=== PATIENT | female | born 2000 | race Two or more races ===

== ENCOUNTER 2024-04-08 07:53 | Outpatient (RCR) | payer OTHER, SELFPAY ==
--- NOTE | 2024-01-29 08:51 | XR_ITS ---
Examination: Biophysical profile, ultrasound Date and time of exam: January 29, 2024 0929 hours INDICATIONS: Diagnosis intrauterine growth retardation Technique: Multiple transabdominal sonographic images of the pelvis abdomen obtained. Attention is directed to the breathing movement, gross body movement, amniotic fluid volume and tone. Findings: Amniotic fluid index 11.1 cm Total biophysical profile is 8 of 8. breathing movement is 2. Gross body movement is 2. tone is 2. Qualitative amniotic fluid volume is 2 Impression: Biophysical profile is 8 of 8.
[2024-01-29 09:55] VITALS: BP 110/74; PULSE 83; RESP 16; TEMP 36.9
--- NOTE | 2024-02-01 08:04 | XR_ITS ---
Examination: Biophysical profile, ultrasound Date and time of exam: February 01, 2024 0826 hours INDICATIONS: Diagnosis intrauterine growth retardation Technique: Multiple transabdominal sonographic images of the pelvis abdomen obtained. Attention is directed to the breathing movement, gross body movement, amniotic fluid volume and tone. Findings: Amniotic fluid 13.5 cm Total biophysical profile is 8 of 8. breathing movement is 2. Gross body movement is 2. tone is 2. Qualitative amniotic fluid volume is 2 Impression: Biophysical profile is 8 of 8.
[2024-02-01 08:45] VITALS: BP 110/75; PULSE 93; RESP 16; TEMP 36.8
--- NOTE | 2024-02-08 08:05 | XR_ITS ---
Examination: Biophysical profile, ultrasound Date and time of exam: February 08, 2024 at 0808 hours INDICATIONS: Intrauterine growth retardation diagnoses Technique: Multiple transabdominal sonographic images of the pelvis abdomen obtained. Attention is directed to the breathing movement, gross body movement, amniotic fluid volume and tone. Findings: Amniotic fluid index 11.5 cm Total biophysical profile is 8 of 8. breathing movement is 2. Gross body movement is 2. tone is 2. Qualitative amniotic fluid volume is 2 Impression: Biophysical profile is 8 of 8.
[2024-02-08 08:44] VITALS: BP 112/68; PULSE 90; RESP 18; TEMP 37
--- NOTE | 2024-02-12 08:18 | XR_ITS ---
Examination: Biophysical profile, ultrasound Date and time of exam: February 12, 2024 0819 hours INDICATIONS: Biweekly NST, diagnosis intrauterine growth retardation Technique: Multiple transabdominal sonographic images of the pelvis abdomen obtained. Attention is directed to the breathing movement, gross body movement, amniotic fluid volume and tone. Findings: Amniotic fluid index 12.1 cm Total biophysical profile is 8 of 8. breathing movement is 2. Gross body movement is 2. tone is 2. Qualitative amniotic fluid volume is 2 Impression: Biophysical profile is 8 of 8.
[2024-02-12 08:51] VITALS: BP 98/61; PULSE 105; RESP 16; TEMP 36.7
--- NOTE | 2024-02-15 08:02 | XR_ITS ---
Examination: Biophysical profile, ultrasound Date and time of exam: February 15, 2024 0805 hours INDICATIONS: Maternal care for other known or suspected poor growth Technique: Multiple transabdominal sonographic images of the pelvis abdomen obtained. Attention is directed to the breathing movement, gross body movement, amniotic fluid volume and tone. Findings: Amniotic fluid index 11.5 cm Total biophysical profile is 8 of 8. breathing movement is 2. Gross body movement is 2. tone is 2. Qualitative amniotic fluid volume is 2 Impression: Biophysical profile is 8 of 8.
[2024-02-15 08:28] VITALS: BP 112/69; PULSE 99; RESP 16; TEMP 36.7
--- NOTE | 2024-02-19 08:16 | XR_ITS ---
Examination: Biophysical profile, ultrasound Date and time of exam: February 19, 2024 0820 hours INDICATIONS: Poor growth Technique: Multiple transabdominal sonographic images of the pelvis abdomen obtained. Attention is directed to the breathing movement, gross body movement, amniotic fluid volume and tone. Findings: Amniotic fluid index 13.7 cm Total biophysical profile is 8 of 8. breathing movement is 2. Gross body movement is 2. tone is 2. Qualitative amniotic fluid volume is 2 Impression: Biophysical profile is 8 of 8.
[2024-02-19 08:43] VITALS: BP 117/72; PULSE 96; RESP 16; TEMP 36.7
--- NOTE | 2024-02-26 08:13 | XR_ITS ---
Examination: Biophysical profile, ultrasound Date and time of exam: February 26, 2024 0817 hours INDICATIONS: Intrauterine growth retardation diagnoses Technique: Multiple transabdominal sonographic images of the pelvis abdomen obtained. Attention is directed to the breathing movement, gross body movement, amniotic fluid volume and tone. Findings: Amniotic fluid index 11.6 cm Total biophysical profile is 8 of 8. breathing movement is 2. Gross body movement is 2. tone is 2. Qualitative amniotic fluid volume is 2 Impression: Biophysical profile is 8 of 8.
[2024-02-26 08:38] VITALS: BP 117/74; PULSE 92; RESP 16; TEMP 36.9
--- NOTE | 2024-02-29 08:03 | XR_ITS ---
Examination: Biophysical profile, ultrasound Date and time of exam: February 29, 2024 0806 hours INDICATIONS: Diagnosis intrauterine growth retardation Technique: Multiple transabdominal sonographic images of the pelvis abdomen obtained. Attention is directed to the breathing movement, gross body movement, amniotic fluid volume and tone. Findings: Amniotic fluid index 13.2 cm Total biophysical profile is 8 of 8. breathing movement is 2. Gross body movement is 2. tone is 2. Qualitative amniotic fluid volume is 2 Impression: Biophysical profile is 8 of 8.
[2024-02-29 08:41] VITALS: BP 115/69; PULSE 106; RESP 16; TEMP 36.9
--- NOTE | 2024-03-04 08:06 | XR_ITS ---
Examination: Biophysical profile, ultrasound Date and time of exam: March 04, 2024 0809 hours INDICATIONS: Diagnosis intrauterine growth retardation Technique: Multiple transabdominal sonographic images of the pelvis abdomen obtained. Attention is directed to the breathing movement, gross body movement, amniotic fluid volume and tone. Findings: Amniotic fluid index 11.8 cm Total biophysical profile is 8 of 8. breathing movement is 2. Gross body movement is 2. tone is 2. Qualitative amniotic fluid volume is 2 Impression: Biophysical profile is 8 of 8.
[2024-03-04 08:42] VITALS: BP 103/60; PULSE 93; RESP 16; TEMP 36.7
--- NOTE | 2024-03-07 08:10 | XR_ITS ---
Examination: Biophysical profile, ultrasound Date and time of exam: March 07, 2024 0821 hours INDICATIONS: Diagnosis intrauterine growth retardation Technique: Multiple transabdominal sonographic images of the pelvis abdomen obtained. Attention is directed to the breathing movement, gross body movement, amniotic fluid volume and tone. Findings: Amniotic fluid index 11.4 cm Total biophysical profile is 8 of 8. breathing movement is 2. Gross body movement is 2. tone is 2. Qualitative amniotic fluid volume is 2 Impression: Biophysical profile is 8 of 8.
[2024-03-07 08:46] VITALS: BP 117/66; PULSE 110; RESP 16; TEMP 36.7
--- NOTE | 2024-03-11 08:12 | XR_ITS ---
Examination: Biophysical profile, ultrasound Date and time of exam: March 11, 2024 0813 hours INDICATIONS: Diagnosis intrauterine growth retardation Technique: Multiple transabdominal sonographic images of the pelvis abdomen obtained. Attention is directed to the breathing movement, gross body movement, amniotic fluid volume and tone. Findings: Amniotic fluid index 12.5 cm Total biophysical profile is 8 of 8. breathing movement is 2. Gross body movement is 2. tone is 2. Qualitative amniotic fluid volume is 2 Impression: Biophysical profile is 8 of 8.
[2024-03-11 08:32] VITALS: BP 110/60; PULSE 115; RESP 16; TEMP 36.7
--- NOTE | 2024-03-14 08:11 | XR_ITS ---
Examination: Biophysical profile, ultrasound Date and time of exam: March 14, 2024 0812 hours INDICATIONS: Intrauterine growth retardation Technique: Multiple transabdominal sonographic images of the pelvis abdomen obtained. Attention is directed to the breathing movement, gross body movement, amniotic fluid volume and tone. Findings: Amniotic fluid index 7.6 cm Total biophysical profile is 8 of 8. breathing movement is 2. Gross body movement is 2. tone is 2. Qualitative amniotic fluid volume is 2 Impression: Biophysical profile is 8 of 8.
[2024-03-14 08:38] VITALS: BP 102/63; PULSE 105; RESP 16
--- NOTE | 2024-03-18 08:14 | XR_ITS ---
Examination: Biophysical profile, ultrasound Date and time of exam: March 18, 2024 0829 hours INDICATIONS: Diagnosis intrauterine growth retardation Technique: Multiple transabdominal sonographic images of the pelvis abdomen obtained. Attention is directed to the breathing movement, gross body movement, amniotic fluid volume and tone. Findings: Amniotic fluid index 10.9 cm Total biophysical profile is 8 of 8. breathing movement is 2. Gross body movement is 2. tone is 2. Qualitative amniotic fluid volume is 2 Impression: Biophysical profile is 8 of 8.
[2024-03-18 09:14] VITALS: BP 106/61; PULSE 102; RESP 18
--- NOTE | 2024-03-21 08:12 | XR_ITS ---
Examination: Biophysical profile, ultrasound Date and time of exam: March 21, 2024 0819 hours INDICATIONS: Diagnosis intrauterine growth retardation Technique: Multiple transabdominal sonographic images of the pelvis abdomen obtained. Attention is directed to the breathing movement, gross body movement, amniotic fluid volume and tone. Findings: Amniotic fluid index 10.2 cm Total biophysical profile is 8 of 8. breathing movement is 2. Gross body movement is 2. tone is 2. Qualitative amniotic fluid volume is 2 Impression: Biophysical profile is 8 of 8.
[2024-03-21 08:40] VITALS: BP 117/61; PULSE 98; RESP 16; TEMP 37
--- NOTE | 2024-03-25 08:20 | XR_ITS ---
Examination: Biophysical profile, ultrasound Date and time of exam: March 25, 2024 0822 hours INDICATIONS: Diagnosis intrauterine growth retarded dictation Technique: Multiple transabdominal sonographic images of the pelvis abdomen obtained. Attention is directed to the breathing movement, gross body movement, amniotic fluid volume and tone. Findings: Amniotic fluid index 11.6 cm Total biophysical profile is 8 of 8. breathing movement is 2. Gross body movement is 2. tone is 2. Qualitative amniotic fluid volume is 2 Impression: Biophysical profile is 8 of 8.
[2024-03-25 08:51] VITALS: BP 105/69; PULSE 96; RESP 14; TEMP 36.8
--- NOTE | 2024-03-28 08:03 | XR_ITS ---
Examination: Biophysical profile, ultrasound Date and time of exam: March 28, 2024 0812 hours INDICATIONS: Diagnosis maternal care for other known or suspected poor growth, patient states pelvic pressure and vomiting intermittently beginning 2 days ago Technique: Multiple transabdominal sonographic images of the pelvis abdomen obtained. Attention is directed to the breathing movement, gross body movement, amniotic fluid volume and tone. Findings: Amniotic fluid index 14.8 cm Total biophysical profile is 8 of 8. breathing movement is 2. Gross body movement is 2. tone is 2. Qualitative amniotic fluid volume is 2 Impression: Biophysical profile is 8 of 8.
[2024-03-28 08:48] VITALS: BP 108/67; PULSE 88; RESP 15; TEMP 36.7
--- NOTE | 2024-04-01 08:06 | XR_ITS ---
Examination: Biophysical profile, ultrasound Date and time of exam: April 01, 2024 0833 hours INDICATIONS: Diagnosis intrauterine growth retardation Technique: Multiple transabdominal sonographic images of the pelvis abdomen obtained. Attention is directed to the breathing movement, gross body movement, amniotic fluid volume and tone. Findings: Amniotic fluid index 6.3 cm Total biophysical profile is 8 of 8. breathing movement is 2. Gross body movement is 2. tone is 2. Qualitative amniotic fluid volume is 2 Impression: Biophysical profile is 8 of 8.
[2024-04-01 09:53] VITALS: BP 113/58; PULSE 74; RESP 15; TEMP 36.7
--- NOTE | 2024-04-04 08:07 | XR_ITS ---
Examination: Biophysical profile, ultrasound Date and time of exam: April 04, 2024 0822 hours INDICATIONS: Diagnosis intrauterine growth retardation, history low amniotic fluid index, 6.3 cm on biophysical April 01, 2024 Technique: Multiple transabdominal sonographic images of the pelvis abdomen obtained. Attention is directed to the breathing movement, gross body movement, amniotic fluid volume and tone. Findings: Amniotic fluid index 11.2 cm Total biophysical profile is 8 of 8. breathing movement is 2. Gross body movement is 2. tone is 2. Qualitative amniotic fluid volume is 2 Impression: Biophysical profile is 8 of 8.
[2024-04-04 08:58] VITALS: BP 111/64; PULSE 96; RESP 16; TEMP 36.7
--- NOTE | 2024-04-08 08:18 | XR_ITS ---
Examination: Biophysical profile, ultrasound Date and time of exam: April 08, 2024 0819 hours INDICATIONS: Diagnosis intrauterine growth retardation, diagnosis low amniotic fluid index, 6.3 cm on biophysical April 01, 2024 Technique: Multiple transabdominal sonographic images of the pelvis abdomen obtained. Attention is directed to the breathing movement, gross body movement, amniotic fluid volume and tone. Findings: Amniotic fluid index 15.3 cm Total biophysical profile is 8 of 8. breathing movement is 2. Gross body movement is 2. tone is 2. Qualitative amniotic fluid volume is 2 Impression: Biophysical profile is 8 of 8.
[2024-04-08 08:50] VITALS: BP 98/56; PULSE 113; RESP 16; TEMP 36.9
== END 2024-04-08 23:59 | disposition home or self-care (01) ==
LOC: S4S1 07:53
PROVIDERS: Referring Provider Obstetrics & Gynecology; Visit Provider Obstetrics & Gynecology
DX: O36.5930 Maternal care for other known or suspected poor fetal growth, third trimester, not applicable or unspecified (principal); Z3A.38 38 weeks gestation of pregnancy
CPT/HCPCS: 59025; 76819

== ENCOUNTER 2024-04-09 19:20 | Inpatient (IN) | payer OTHER, SELFPAY ==
[2024-04-09] VITALS (13 sets, daily range): BP systolic 102–116; BP diastolic 46–69; PULSE 89–126; RESP 18–98; TEMP 36.5; O2SAT 96–97; BMI 34.3
[2024-04-09 20:56] LABS: Basophils % (Auto) 0 % (0-2.5); Eosinophils # (Auto) 0.2 Thou/mm3 (0.0-0.5); Eosinophils % (Auto) 2 % (0-10); Hematocrit 35.2 % (36.0-46.0); Immature Granulocytes % (Auto) 1 % (0-0); Immature Granulocytes Auto 0.11 Thou/mm3 (0.00-0.00); Lymphocytes # (Auto) 2.2 Thou/mm3 (1.0-4.8); Lymphocytes % (Auto) 18 % (10-50); Mean Corpuscular HGB Conc 34.1 g/dl (31.0-37.0); Mean Corpuscular Hemoglobin 28.8 pg (25.0-35.0); Mean Corpuscular Volume 85 fL (80-100); Monocytes % (Auto) 8 % (0-12); Neutrophils # (Auto) 8.6 Thou/mm3 (1.8-7.7); Neutrophils % (Auto) 71 % (37-80); Nucleated Red Blood Cell % 0 /100 WBC (0); Platelet Count 165 Thou/mm3 (140-440); RDW Standard Deviation 41.1 fL (36.4-46.3); Red Blood Count 4.16 Miln/mm3 (4.00-5.20); White Blood Count 12.1 Thou/mm3 (3.6-11.0)
[2024-04-09] MEDS: OXYTOCIN in NS 30 units 30 UNIT/500 ML BAG IV (22:25)
[2024-04-09] MEDS: [UNRECOGNIZED DRUG - OTHER] IV (22:25)
[2024-04-09 23:14] LABS: Syphilis Nonreactive (Nonreactive)
[2024-04-10] VITALS (107 sets, daily range): BP systolic 87–148; BP diastolic 51–80; PULSE 80–124; RESP 16–18; TEMP 36.3–36.9; O2SAT 93–100
--- NOTE | 2024-04-10 07:19 | ESHP_ITS ---
Documentation for date of: 04/10/24 OB Labor/Induct. HPI History of Present Illness Chief complaint: induction : 1 Para: 0 Term pregnancies: 0 pregnancies: 0 Living children: 0 History of Abortions: Spontaneous and Elective: 0 History of Vaginal deliveries: 0 History of sections: No History of : No Date of last menstrual period: 07/15/23 BLU: 04/20/24 Gestational Age (weeks): 38 Gestational Age (days): 4 Gestational age based on last menstrual period: 38 Indication for induction: other (FGR) History of present illness: 23-year-old 1 para 0 admit to labor and delivery for induction of labor. Patient is been followed at [facility] care. First visit 12 weeks. Last period July 15, 2023. Estimated due date April 2004/2024. Patient is O+, antibody screen negative, RPR nonreactive, rubella immune, hepatitis B negative, hep C negative, HIV negative, GC and Chlamydia were negative. She had normal 1 hour. And GBS negative. Denies social habits. Denies surgery. Denies chronic illness. Patient has been [facility] at [facility] because of growth restriction. Baby initially had been growing in 4th percentile but the last 2 visits baby is now growing in the 10th percentile consistently with good fundal height growth clinically. Her Dopplers have been normal and NST BPP is normal History of Present Dating criteria: LMP confirmed by 1st trimester US Adequate Care: Yes Ultrasounds: normal 1st trimester US and normal mid trimester US Obstetrical complications: growth restriction Medical complications: none Labs Labs: Negative: Hepatitis B, HIV, Chlamydia, Gonorrhea and Group Beta Strep Review of Systems Review of Systems Systems Reviewed: All systems reviewed, normal except as documented Past Medical History Surgical History SURGICAL: Negative Section Meds Home Medications and Allergies Home Medications ?Medication ?Instructions ?Recorded ?Confirmed ?Type No Known Home Medications 04/09/24 04/09/24 History Allergies Allergy/AdvReac Type Severity Reaction Status Date / Time No Known Allergies Allergy Unknown Uncoded 04/09/24 20:07 OB Exam Physical Exam Vital signs: Temp Pulse Resp BP Pulse Ox 97.7 F 96 18 111/73 97 04/09/24 19:56 04/10/24 07:02 04/09/24 21:00 04/10/24 07:02 04/09/24 21:34 Narrative: Normal heart rate and rhythm. Lungs clear no wheezes. Gravid abdomen. Gynecoid pelvis. Estimated weight 6 pounds. Vaginal exam on admission was 70%, 2-minute, -2. Posterior. Vertex. heart rate category 1 with accelerations and moderate variability and contractions on admission were every 2-6. Detailed Labor and Delivery Exam Dilation (cm): 2 Effacement (%): 70 Cervix position: mid station: -2 Consistency: medium Presentation: Vertex Cervical ripeness score: 6 Membranes: intact Baseline heart rate: 130 monitor accelerations: 15x15 monitor decelerations: None terminal computer operator variability: Moderate (11-25) Contraction frequency (min): 2-6 Contraction duration (sec): 30 Tachysystole: No Contraction intensity: Mild OB Results Labs 04/09/24 19:45 Labs: Short CBC 04/09/24 Range/Units 19:45 WBC 12.1 H (3.6-11.0) Thou/mm3 Hgb 12.0 (12.0-16.0) g/dL Hct 35.2 L (36.0-46.0) % Plt Count 165 (140-440) Thou/mm3 Impressions Impression: induction of labor OB Assessment & Plan Assessment and Plan (1) Normal labor and delivery: Status: Acute Additional Plan Induction method: per pitocin protocol Plan: induction, anticipate NVD and consult MD hernandez
[2024-04-10] MEDS: RINGERS LACTATED 1000 ML 1,000 ML 100 ML IV ×3 (10:35→20:09)
--- NOTE | 2024-04-10 18:18 | PD.LDPN ---
Documentation for date of: 04/10/24 OB Labor Progress Note Pain Control Pain control: tolerating well Pelvic Exam Dilation (cm): 5 Effacement (%): 70 station: -1 Amniotic membrane status: Ruptured Comments: clear Contractions Monitor mode: Internal Contraction frequency: 2-3 Contraction phase: Resting Contraction intensity: Mild Status status: Category l Assessment and Plan Pitocin rate (mU/min): 9 Assessment: induction ongoing Plan OB labor note: continuous present management CNM Management MD Consulted (describe details below): Yes
[2024-04-11] VITALS (70 sets, daily range): BP systolic 98–176; BP diastolic 53–124; PULSE 80–164; RESP 15–21; TEMP 36.6–37.1; O2SAT 95–100
[2024-04-11] MEDS: RINGERS LACTATED 1000 ML 1,000 ML 100 ML IV (01:33)
--- NOTE | 2024-04-11 02:55 | PD.LDPN ---
Documentation for date of: 04/11/24 OB Labor Progress Note Pain Control Pain control: epidural Pelvic Exam Dilation (cm): 10 Effacement (%): 100 station: 0 Amniotic membrane status: Ruptured Contractions Monitor mode: Internal Contraction frequency: 2-3 Contraction duration: 30 Contraction phase: Resting Contraction intensity: Mild Status status: Category l Assessment and Plan Pitocin rate (mU/min): 6 Assessment: active labor (pushing since 0210) CNM Management MD Consulted (describe details below): Yes
--- NOTE | 2024-04-11 04:22 | ESPR_ITS ---
Documentation for date of: 04/11/24 OB Labor Progress Note Pelvic Exam Dilation (cm): 10 Effacement (%): 100 station: +1 Amniotic membrane status: Ruptured Comments: Caput++ Contractions Monitor mode: Internal Contraction frequency: 2-3 Contraction phase: Resting Contraction intensity: Mild Status status: Category ll Assessment and Plan Comments: Patient was pushing for more than 2 hours Very small change in head station from 0 to +1 Occipitoposterior position baby's head Prominent caput extending to left 3, molding Swelling of vagina and vulval tissue seen Narrow pubic arch on examination CNM Management Details of MD consultation: Patient is not currently a good candidate for vacuum application given the station Boarded for primary low-transverse Patient was discussed about the risk of , benefits, alternatives of C- section as an continuing labor
[2024-04-11] MEDS: METOCLOPRAMIDE INJ 5 MG/ML VIAL 2 ML 10 MG IVP (04:27)
[2024-04-11] MEDS: FAMOTIDINE INJ 10 MG/ML VIAL 2 ML 20 MG IV (04:30)
[2024-04-11] MEDS: ceFAZolin/D5W 2 GM IV 2 GM/100 ML BAG IV (04:34)
--- NOTE | 2024-04-11 07:25 | ESOP_ITS ---
Operative Note - [employer] WORK[employer] HELPER Procedure Date of procedure: 04/11/24 Procedure Performed: Primary low-transverse Indication: Arrest of second stage of labor: No change in head station and spite of 2 hours of active pushing, signs of obstruction include caput, narrow pubic arch, swelling of vulvar tissue Category 2 heart Pre-Op diagnosis: Same Post-Op diagnosis: Same Anesthesia type: Spinal Procedure description: Informed consent was obtained and the patient was taken to the operating room.? Identity was confirmed by double identifiers and she was placed on the operating table.The abdomen and perineum were prepped in the usual sterile fashion and a Kate catheter was placed to continuous drainage.? Sterile drapes were applied.??A Pfannenstiel skin incision was made with a scalpel and carried to the subcutaneous fat up to the rectus fascia.? The rectus fascia was incised on either side of the midline and the incisions were extended bilaterally.? The fascia was gently dissected off the ventral surface of the rectus muscle both superiorly and inferiorly. Carefully a peritioneal window craeted hysterotomy incision made and extended bluntly with finger. Rupture of membranes revealed clear fluid. The baby was cephalic position deeply wedged in the pelvis. Vaginal push given by the emergency medicine physician assistant could not dislodge baby's head. Decision to deliver via reverse breech extraction was made, baby delivered via breech extraction . The umbilical cord , was doubly clamped, divided and the infant was handed over to the waiting team.? placenta delivered by controlled cord traction . The interior of the uterus was now thorougly cleaned of all blo od and debris and membranes.? The? hysterotomy was closed using 0 vicryl suture in double layers. Once the repair was completed the hysterotomy was inspected, was noted to be adequately hemostatic . Muscle oozing stopped by bovie. The rectus fascia was repaired using Vicry 0 in a running fashion.? The subcutaneous layer was now, approximated with 3-0 vicryl in double layers.? All bleeding points were cauterized using the Bovie.?The skin was closed using 4-0 Monocryl in a subcuticular fashion.? The skin was cleaned and a sterile dressing was applied. The patient was now undraped, the abdomen and back were thoroughly cleaned and she was now transferred to the recovery room in a stable Estimated blood loss (ml): 500 Surgical staff Operation Date: 04/11/24 04:45 Case Staff NURSERY TEACHER: Jacob Parham RN First Assistant: Doris Galarza Diagnosis Problem List Completed Was Problem List Reviewed/Reconciled?: Yes
--- NOTE | 2024-04-11 07:33 | OBDSUM_ITS ---
Data (Mares) Data Hx Section: No : 1 Para: 0 Term: 0 : 0 : 0 Delivery Data (Mares) Labor Data Induction: Yes ROM Date: 04/10/24 ROM Time: 18:11 Rupture Type: AROM Amniotic Fluid: Clear Delivery Data Labor Onset Stage 1 Date: 04/10/24 Labor Onset Stage 1 Time: 18:12 Labor Onset Stage 2 Date: 04/11/24 Labor Onset Stage 2 Time: 02:00 Delivery Date: 04/11/24 Delivery Time: 05:03 Gestational age (weeks): 38 Gestational age (days): 5 Placenta Delivery Date: 04/11/24 Placenta Delivery Time: 05:06 Delivered by: Lazaro Isaacs Delivery nurse: Afsaneh Melendez Other staff at delivery: Nursery Nurse Other staff at delivery: Carmen Arellano Delivery Method Delivery: Delivery Type: Primary Anesthesia Type Primary Anesthesia: Epidural Placenta Placenta Delivery: Manual EBL Estimated blood loss (ml): 500 Umbilical Cord Umbilical Vessels: 3 Data (Mares) [place] Data Gender: Female Identification Band Number: [id number] Weight Grams: 2960 1 Minute Total: 9 5 Minute Total: 9
[2024-04-11 10:10] LABS: Basophils % (Auto) 0 % (0-2.5); Eosinophils % (Auto) 0 % (0-10); Hematocrit 33.2 % (36.0-46.0); Hemoglobin 11.5 g/dL (12.0-16.0); Immature Granulocytes % (Auto) 1 % (0-0); Lymphocytes % (Auto) 5 % (10-50); Mean Corpuscular HGB Conc 34.6 g/dl (31.0-37.0); Mean Corpuscular Hemoglobin 29.3 pg (25.0-35.0); Mean Corpuscular Volume 85 fL (80-100); Monocytes # (Auto) 0.9 Thou/mm3 (0.0-0.8); Monocytes % (Auto) 5 % (0-12); Neutrophils # (Auto) 17.3 Thou/mm3 (1.8-7.7); Neutrophils % (Auto) 89 % (37-80); Nucleated Red Blood Cell % 0 /100 WBC (0); Platelet Count 141 Thou/mm3 (140-440); RDW Standard Deviation 40.7 fL (36.4-46.3); Red Blood Count 3.92 Miln/mm3 (4.00-5.20); White Blood Count 19.4 Thou/mm3 (3.6-11.0)
[2024-04-11] MEDS: KETOROLAC INJ 30 MG/ML VIAL IVP ×2 (12:19→19:57)
[2024-04-11] MEDS: OXYTOCIN in NS 20 units 20 UNIT/1,000 ML BAG 125 UNIT IV (15:10)
[2024-04-11] MEDS: HYDROcodone/APAP 5/325 TABLET 1 TAB PO (16:40)
[2024-04-11] MEDS: SIMETHICONE 80 MG CHEW PO (20:17)
[2024-04-11] MEDS: Milk Of Magnesia Susp 30 ML UDC PO (20:17)
[2024-04-12] VITALS (7 sets, daily range): BP systolic 104–122; BP diastolic 67–80; PULSE 82–110; RESP 16–20; TEMP 36.7–37.2; O2SAT 96–99
[2024-04-12] MEDS: IBUPROFEN TAB 400 MG TABLET 800 MG PO ×2 (04:52→15:13)
[2024-04-12] MEDS: SIMETHICONE 80 MG CHEW PO (04:52)
--- NOTE | 2024-04-12 06:02 | PC.NURSE ---
04/12/2024 @ 0510 pt ambulating in unit with support person
[2024-04-12] MEDS: HYDROcodone/APAP 5/325 TABLET 1 TAB PO (11:03)
[2024-04-12] MEDS: ACETAMINOPHEN 325 MG TABLET 650 MG PO (17:23)
[2024-04-13 04:00] VITALS: BP 101/65; PULSE 87; RESP 18; TEMP 36.8; O2SAT 97
[2024-04-13] MEDS: HYDROcodone/APAP 5/325 TABLET 1 TAB PO (04:39)
[2024-04-13 07:40] VITALS: BP 110/66; PULSE 92; RESP 18; TEMP 36.6; O2SAT 99
--- NOTE | 2024-04-13 09:22 | PD.LDPPPRG ---
Subjective Subjective Interval history: POD2 CD for arrest of descent Patient doing well no issues . Baby at beside. Pain well controlled, bleeding within normal limits. Voiding without issues. Passing gas. No lightheadedness when walking. Exam Vital Signs Temp Pulse Resp BP Pulse Ox O2 Del Method 97.9 F 92 18 110/66 99 Room Air 04/13/24 07:40 04/13/24 07:40 04/13/24 07:40 04/13/24 07:40 04/13/24 07:40 04/13/24 07:40 Narrative Exam General: NAD RESP: normal work of breathing Abdomen: soft, gravid, non-tender, no rebound or guarding, Fundus firm and at approximate level of the umbilicus. Incision: bandage in place and clean/dry Extremities: no pain with palpation of calves and no unilateral swelling Objective Labs 04/11/24 10:25 Assessment & Plan Problem List (1) Normal labor and delivery: Status: Acute Plan Comment Plan Comment: -Meeting all postoperative milestones -Hemodynamically stable Hgb 11.5 -Regular diet -Pain control with motrin and norco -Encourage ambulation and use of IS Time Spent With Patient Time: Total time spent is greater than 50% in coordination of care (as documented) at patient's floor/unit and/or counseling patient:
--- NOTE | 2024-04-13 10:35 | PD.LDDS ---
DS: Providers Provider Date of admission: 04/09/24 19:20 Primary care physician: Physician No Primary/Family Admitting Provider: Doris Lara CNM Attending Provider on Admission: Radha Kevin MD Consults: 04/11/24 04:25 Referral Routine Comment: Attending Provider on DC: Radha Kevin MD Discharging Provider: Radha Kevin MD DS: Diagnosis Problem List Completed Was Problem List Reviewed/Reconciled?: Yes Summary/Hosp Course Brief History: 23-year-old 1 para 0 admit to labor and delivery for induction of labor. Patient is been followed at [facility] care. First visit 12 weeks. Last period July 15, 2023. Estimated due date April 2004/2024. Patient is O+, antibody screen negative, RPR nonreactive, rubella immune, hepatitis B negative, hep C negative, HIV negative, GC and Chlamydia were negative. She had normal 1 hour. And GBS negative. Denies social habits. Denies surgery. Denies chronic illness. Patient has been [facility] at [facility] with [facility] because of growth restriction. Baby initially had been growing in 4th percentile but the last 2 visits baby is now growing in the 10th percentile consistently with good fundal height growth clinically. Her Dopplers have been normal and NST BPP is normal Hospital course: Patient was induced and progressed to complete and had arrest of descent. She underwent uncomplicated delivery on 04/11/24 and delviered a female infant 2960g, Agpars 9/9 EBL 500cc. On POD 2 she was meeting all milestones and discharged home in stable condition. Peripartum Data Procedures: Procedures Operation Date: 04/11/24 04:45 Actual Procedure Side Surgeon p in OB Lazaro Isaacs MD Time Spent with Patient Time attestation: Total time spent providing and/or coordinating discharge services: Exam Vital Signs Temp Pulse Resp BP Pulse Ox O2 Del Method 97.9 F 92 18 110/66 99 Room Air 04/13/24 07:40 04/13/24 07:40 04/13/24 07:40 04/13/24 07:40 04/13/24 07:40 04/13/24 07:40 Discharge Plan Plan Patient Disposition: HOME (Self Care) Prescriptions/Referrals Prescriptions/Med Rec: New acetaminophen 325 mg Tablet 650 mg PO Q4H PRN (Reason: See Comments) Qty: 20 0RF hydrocodone-acetaminophen 5-325 mg Tablet 2 tab PO Q6HR MDD 4 TABS PRN (Reason: Patient rated pain 9 to 10) Qty: 12 0RF ibuprofen 400 mg Tablet 800 mg PO Q8H PRN (Reason: See Comments) Qty: 25 0RF docusate sodium [Colace] 100 mg capsule 100 mg PO QDAY Qty: 20 0RF Referrals: No Primary/Family,Physician [Primary Care Provider] - Patient/Caregiver Discharge Instructions Other Discharge Activity Instructions:: Follow up with provider in 1-2 weeks. Education Materials: Pain After Childbirth, Breast Care After , C Section Dc Print Language: Citizen Of [place] Stand Alone Forms: Vandana Award Info., Patient Portal Info Letter Discharge Order Discharge Orders: Discharge (Routine); Ordered 04/13/24 Ordered By: Radha Kevin Planned Discharge Date 04/13/24
--- NOTE | 2024-04-13 21:58 | PD.LDPPPRG ---
Subjective Subjective Interval history: Cayetano is seen at bedside , doing well, denied any fever , no vaginal clots, has been ambulating passing gas and tolerating diet Exam Vital Signs Temp Pulse Resp BP Pulse Ox O2 Del Method 97.9 F 92 18 110/66 99 Room Air 04/13/24 07:40 04/13/24 07:40 04/13/24 07:40 04/13/24 07:40 04/13/24 07:40 04/13/24 07:40 Objective Labs 04/11/24 10:25 Assessment & Plan Problem List (1) Normal labor and delivery: Status: Acute Assessment Comment Assessment comment: 23 y/o s/p PLTCS, POD#1 VSS meeting PO milestones Plan Comment Plan Comment: anticipate discharge tomorrow Continue PO care Time Spent With Patient Time: Total time spent is greater than 50% in coordination of care (as documented) at patient's floor/unit and/or counseling patient:
== END 2024-04-13 10:36 | disposition home or self-care (01) | DRG 788 ==
LOC: S4SX 04-11 05:11 → S4NX 04-11 06:35
PROVIDERS: Student in an Organized Health Care Education/Training Program; Admitting Provider Advanced Practice Midwife; Visit Provider Obstetrics & Gynecology
PROC: 10D00Z1 Extraction of Products of Conception, Low, Open Approach (ICD-10-PCS; CPT 59514; principal; 2024-04-11 04:30)
DX: O36.5930 Maternal care for other known or suspected poor fetal growth, third trimester, not applicable or unspecified (principal); Z37.0 Single live birth; Z3A.38 38 weeks gestation of pregnancy; O32.1XX0 Maternal care for breech presentation, not applicable or unspecified; O62.1 Secondary uterine inertia
CPT/HCPCS: 36415; 59409; 85025; 86780; 86850; 86900; 86901; 94762; A4649; J0689; J1885; J2175; J2210; J2274; J2371; J2405; J2590; J2765; J2795; J3010; J3490; J7120; P9045; A9270; J2270